=== PATIENT | male | born 1965 | race Caucasian/White ===

== ENCOUNTER 2017-05-12 06:25 | Day surgery (SDC) | payer BC ==
[2017-05-10 14:02] LABS: HEMATOCRIT 42.8 % (42.0-54.0); HEMOGLOBIN 14.7 g/dL (13.5-17.5); MCH 31.4 pg (26.0-34.0); MCHC 34.3 g/dL (31.0-37.0); MCV 91.5 fL (80.0-100.0); MEAN PLATELET VOLUME 10.1 fL (7.4-10.4); RBC 4.68 10x6/uL (4.20-6.10); RDW 12.5 % (11.5-14.5); WBC 4.3 10x3/uL (4.8-10.8)
[~2017-05-12 06:25] MED LIST: LIPITOR20 MG PO; LISINOPRIL10 MG PO; NEXIUM20 MG PO
[2017-05-12 09:51] VITALS: BMI 26.3
--- NOTE | 2017-05-12 15:09 | NUR ---
1315--PT VOIDS WITHOUT DIFFICULTY, IV DC'D. PAIGE RN 1330--DISCHARGE INSTRUCTIONS GIVEN, PT VERBALIZES UNDERSTANDING. PT OFF UNIT VIA WC. PAIGE WATTERS
--- NOTE | 2017-05-12 15:13 | OP ---
PATIENT NAME: BRANDEN WHEELER MEDICAL RECORD: [id number] :67 [facility] AD[facility] DATE: SURGEON: YASMANY DONNELLY, RUSSELL MORTENSEN DATE OF OPERATION: 05/12/2017 PREOPERATIVE DIAGNOSES: 1. Impingement syndrome of the left shoulder. 2. Acromioclavicular arthritis of the left shoulder. 3. Rotator cuff tear of the left shoulder. POSTOPERATIVE DIAGNOSES: 1. Impingement syndrome of the left shoulder. 2. Acromioclavicular arthritis of the left shoulder. 3. Rotator cuff tear of the left shoulder. PROCEDURES: 1. Arthroscopic rotator cuff repair. 2. Arthroscopic distal clavicle excision - 1 cm. 3. Arthroscopic subacromial decompression. SURGEON: Russell Jade MD ANESTHESIA: General. INTRAOPERATIVE COMPLICATIONS: None. SUMMARY OF PATHOLOGIC FINDINGS: The patient did not have a full-thickness tearing in the rotator cuff to the articular aspect. In fact, the articular aspect was in very good condition with a [place] variant of the labrum; however, the patient had a downward sloping acromion with excoriation of the coracoacromial ligament, acromioclavicular arthritis as well as a partial thickness laminar tear of the rotator cuff. Intraoperative pictures were taken of this. This did require rotator cuff repair. OPERATIVE SUMMARY IN DETAIL: After obtaining the appropriate preoperative orthopedic surgery consent as well as anesthetic consultation, evaluation and clearance, the patient was brought to the operating room and placed on the operating table in supine position. After adequate general laryngeal mask airway was administered, the patient was placed in the right lateral decubitus position. All pressure points were well padded to include down leg peroneal pad as well as axillary roll. The patient was held firmly to the operating table using the vacuum pack suction system. Left upper extremity and shoulder were prepped and draped in a routine sterile fashion. The arm was held in the Arthrex traction boom at 30 degrees of forward flexion, 30 degrees of abduction with 10 pounds of traction laterally. Arthroscopy was established in the glenohumeral joint from a posterior portal. Anterior portal was established in the anterior safe interval. Diagnostic arthroscopy revealed the above findings as noted. The articular aspect of the shoulder was in a very good overall condition. Arthroscopy was then established in the subacromial space. Accessory lateral portal was created through which the undersurface of the acromion was debrided of all soft tissue elements using the [place] tissue ablation system. The 5-0 barrel bur was then used to perform acromioplasty at the level of acromioclavicular joint and then through a separate anterior arthroscopic portal, the distal clavicle was excised 1 cm. Having completed this, attention was turned to the bursal and rotator cuff aspect. As the bursa OPERATIVE REPORT [id number] BRANDEN WHEELER was taken down, the rotator cuff tear became evident. It was torn at the supraspinatus tendon approximately 80% as the articular aspect of the rotator cuff was still attached. At this point, the 5.0 resector was utilized to decorticate the supraspinatus tendinous footprint for good bleeding bone. Next, a #2 FiberTape was passed in inverted mattress style suture and then anchored laterally with a single 5.5 SwiveLock from Arth[employer]. Having completed this, arthroscopy portals were closed in routine interrupted fashion using 4-0 Prolene. Sterile dressings were applied. The patient was awakened, taken to recovery room in stable condition. All final needle and sponge counts were correct. 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 [address] [place] [address]
== END 2017-05-12 13:30 | disposition home or self-care (01) ==
LOC: D.OPS 06:25 → D.PAN 08:55 → D.OPS 08:55 → D.PAN 09:35 → D.OPS 09:35 → D.PAN 10:30 → D.OPS 11:00
PROVIDERS: Anesthesiology
DX: M75.42 Impingement syndrome of left shoulder (principal); M19.012 Primary osteoarthritis, left shoulder; M75.102 Unspecified rotator cuff tear or rupture of left shoulder, not specified as traumatic; I10 Essential (primary) hypertension; K21.9 Gastro-esophageal reflux disease without esophagitis; M25.512 Pain in left shoulder; Z01.812 Encounter for preprocedural laboratory examination